=== PATIENT | female | born 1955 | race Caucasian/White ===

== ENCOUNTER → 2018-08-22 | Outpatient (REF) | payer BC ==
[~2018-08-22] MED LIST: CIPROFLOXACIN250 MG PO; LAMISIL250 MG PO; LIPITOR10 MG PO; LOTRISONE TOP; MIRAPEX0.5 MG PO; PRILOSEC40 MG PO; TIZANIDINE2 MG PO; XANAX0.25 MG PO
== END | disposition home or self-care (01) | DRG 951 ==
LOC: MRI 08-12 10:30 → MAMMO 11:14 → BD 11:15 → MAMMO 11:30 → MRI 08-23 09:30
PROVIDERS: ATTEND Internal Medicine Geriatric Medicine
DX: Z12.31 Encounter for screening mammogram for malignant neoplasm of breast (principal); N95.1 Menopausal and female climacteric states